=== PATIENT | female | born 1990 | race Caucasian/White ===

== ENCOUNTER 2020-06-25 07:58 | Outpatient (CLI) | payer OTHER ==
--- NOTE | 2020-06-25 09:14 | MRI ---
MRI Lower Ext Jt Lt WO Con History: Ankle pain. Comparison: Radiograph March 15, 2020 Findings: Ligaments: The ATFL and PA ATFL are intact. 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 CFL is th ickened and scarred. Superficial and deep deltoid ligaments are intact. Tibial spring and spring ligaments are intact. Tendons: Achilles tendon is intact. Subtle interstitial split tear of the extensor digitorum tendon a t the level of the ankle before spleen to its distal components. Flexor tendons are intact. The retromalleolar groove is flat. No longitudinal split tear of the peroneus brevis tendon. No sublu xation. The fibro-osseous ridge is intact. No significant tenosynovial fluid. Bones: No fracture. No malalignment. Lisfranc interval is maintained. Soft tissues: Plantar fascia is intact. Normal tarsal sinus. Inferior extensor retinaculum roots are intact. The superficial soft tissue swelling. Low-grade superficial soft tissue swelling of the lateral ankle superficial to the peroneal fascia. Cartilage: No osteochondral defect of the talar dome. Tibial plafond cartilage is intact. Impression: 1. Thickened chronically torn and scarred ATFL. 2. Scarred CFL. 3. Intact peroneal tendons without subluxation nor longitudinal split tear. 4. Low-grade interstitial tear of the extensor digitorum just before splitting into the distal termin al components at the level of the navicular.
== END 2020-06-25 07:59 | disposition home or self-care (01) ==
LOC: SCSMRI 07:58
PROVIDERS: ATTEND Orthopaedic Surgery
DX: S93.492A Sprain of other ligament of left ankle, initial encounter (principal); S96.812A Strain of other specified muscles and tendons at ankle and foot level, left foot, initial encounter